=== PATIENT | female | born 1985 | race Caucasian/White ===

== ENCOUNTER 2020-05-23 14:44 | Inpatient (IN) ==
[2020-05-23] MEDS ORDERED: ONDANSETRON 4 MG TAB.RAPDIS PO PRN (14:52)
[2020-05-23] MEDS ORDERED: INSULIN REGULAR, HUMAN 100 UNITS in NORMAL SALINE 100 ML IV PRN ×2 (14:52)
[2020-05-23] MEDS ORDERED: OXYTOCIN/DEXTROSE 5%-WATER 30 UNITS/500 ML BAG IV ONE (14:52)
[2020-05-23] MEDS ORDERED: MISOPROSTOL 100 MCG TABLET VG PRN (14:52)
[2020-05-23 15:21] LABS: Random Urine Total Protein 83.3 mg/dL (0-12)
[2020-05-23 16:04] LABS: Hematocrit 35.5 % (37.0-47.0); Mean Cell Volume 96.5 fl (78-100); Mean Corpuscular Hemoglobin 32.6 pg (27-31); Mean Corpuscular Hgb Conc 33.8 g/dl (32-36); Mean Platelet Volume 10.9 fl (8-12.5); NRBC# 0.1 k/mm3 (0-1); Neutrophil # 6.2 K/mm3 (1.3-6.0); Neutrophil % 72.2 % (42-75.0); Platelet Count 163 K/mm3 (150-450); Red Blood Count 3.68 M/mm3 (4.2-5.4); Red Cell Distribution Width 13.2 % (11.5-14.0); White Blood Count 8.6 K/mm3 (4.0-10.5)
[2020-05-23 16:05] LABS: Albumin * 2.4 gm/dl (3.4-5.0); Anion Gap 14.1 mmol/L (6.8-13.8); BUN/Creatinine Ratio 19.4 (9.0-21.6); Bilirubin, Total 0.2 mg/dL (0.0-1.1); Ca. Corrected For Albumin 10.3 mg/dL (8.4-10.2); Calcium * 9.3 mg/dL (7.9-10.9); Carbon Dioxide 21.9 mmol/L (24-32.6); TSH * 2.005 uIU/mL (0.358-3.74); Total Protein 5.8 gm/dL (6.2-8.2)
--- NOTE | 2020-05-23 16:35 | HP ---
Chief Complaint - Chief Complaint Date of Service: 05/23/20 Time of Service: 16:28 Chief Complaint: Induction of labor for preeclampsia History of Present Illness: 34 yo at 38 weeks presents to L&D from office for induction of labor due t o preeclampsia. Patient denies NINA, visual changes, epigastric pain. This complicated by anemia, AMA, hypothyroid, GDM - insulin dependent, h/o recurrent SAB, and now preeclampsia. Rh negative Rubella non-immune GBS negative Medical History (Last Reviewed 05/23/20 @ 16:31 by Rui Rod DO) History of recurrent , currently (Chronic) Advanced maternal age affecting , antepartum (Chronic) Hypothyroid (Chronic) Cervical dysplasia Gestational diabetes Onset Date: 03/25/20 Human papilloma virus Pneumonia Fibroid uterus (Resolved) Missed (Resolved) 6wk size embryo Ovarian cyst (Resolved) 2.5cm simple with inconclusive viability (Resolved) Uterine mass (Resolved) Polyp vs Fibroid vs Placental tissue Surgical History: Surgical History (Last Reviewed 05/23/20 @ 16:31 by Rui Rod DO) History of ankle surgery right History of dilation and curettage Onset Date: 06/03/19 Foci of retained chorionic villi and placental site with necrosis and degeneration. No atypia or malignant neoplasia identified. History of hysteroscopy Onset Date: 06/03/19 Status post hysteroscopic polypectomy Onset Date: 06/03/19 Family History: Family History (Last Reviewed 05/23/20 @ 16:31 by Rui Rod DO) Mother Alive and well Father Alive and well Social History: (Last Reviewed 05/23/20 @ 16:31 by Rui Rod DO) Social History: Marital status: household members: spouse current occupational status: employed current occupation: [employer] Highest education level completed: Associate degree: occupat Service: No Tobacco: Smoking Status: Never smoker Alcohol: alcohol intake: current alcohol intake frequency: holiday/special occasion details: none since + UPT Substance Use: substance use type: does not use Dietary Habits: caffeine: Yes caffeine comment: 1-2daily Type: carbonated beverages, tea Exercise: Physical activity type: none Review Of Systems (GEN) - Review of Systems Generalized/Overall Review: Present: No Symptoms Reported EENTM: Present: No Symptoms Reported Respiratory: Present: No Symptoms Reported Cardiac: Present: No Symptoms Reported Abdominal: Present: No Symptoms Reported Genitourinary: Present: No Symptoms Reported Musculoskeletal: Present: No Symptoms Reported Neurological: Present: No Symptoms Reported Skin: Present: No Symptoms Reported Endocrine: Present: No Symptoms Reported Allergies/Adverse Reactions: Allergies Allergy/AdvReac Type Severity Reaction Status Date / Time Penicillins Allergy Intermediate itching, Verified 05/23/20 15:13 "swelled up" metronidazole Allergy Unknown Verified 05/23/20 15:13 Home Medications: HOME MEDICATIONS aspirin 81 mg tablet,delayed release 81 mg PO DAILY 10/08/19 [Last Taken 05/22/20] levothyroxine 50 mcg tablet 50 mcg PO DAILY #90 tab 10/19/19 [Last Taken 05/23/20] prenat.vits,erlinda,wsa-ejoc-yvdsk 1 tab PO DAILY 12/15/19 [Last Taken 05/22/20] ferrous sulfate 325 mg (65 mg iron) tablet 325 mg PO DAILY #30 tab 03/21/20 [Last Taken 05/22/20] acetone (urine) test See Rx Instructions .ROUTE .MEDSUPPLY #100 ea 03/25/20 [Last Taken Unknown] blood sugar diagnostic See Rx Instructions .ROUTE .MEDSUPPLY #100 ea 03/25/20 [Last Taken Unknown] blood-glucose meter See Rx Instructions .ROUTE .MEDSUPPLY #1 ea 03/25/20 [Last Taken Unknown] lancets 28 gauge See Rx Instructions .ROUTE .MEDSUPPLY #100 ea 03/25/20 [Last Taken Unknown] insulin NPH isoph U-100 human 100 unit/mL (3 mL) subcutaneous pen 10 unit SUBCUT BID #15 ml 04/08/20 [Last Taken 05/23/20 07:00] pen needle, diabetic 32 gauge x 5/32" See Rx Instructions .ROUTE .MEDSUPPLY #100 ea 04/12/20 [Last Taken Unknown] diphenhydrAMINE HCL [Benadryl] 25 mg PO Q3H6XD PRN 05/16/20 [Last Taken 05/16/20 09:30] Exam - Exam Vital Signs: Vital Signs - Last Taken Temp 37.1 C 05/23/20 16:23 Pulse 69 05/23/20 16:23 Resp 20 08/03/20 16:23 BP 139/92 H 05/23/20 16:23 Pulse Ox 99 05/23/20 16:23 Constitutional: Present: Alert, Oriented x3, Cooperative, No distress ENT Exam: Present: hearing grossly normal Neck: Absent: thyromegaly Breasts: Present: Exam deferred Respiratory: Present: lungs clear, no respiratory distress Cardiovascular/Chest: Present: normal peripheral pulses, regular rate, rhythm, no edema Abdomen: Present: soft, nontender, no rebound tenderness, other - gravid /Rectal: Present: Other - FT/60/-2, posterior Extremity: Present: no calf tenderness, lower extremity edema - 1+ Skin Exam: Present: normal color, warm/dry, no cyanosis Neurologic: Present: alert, normal mood/affect, oriented x 3 Appearance: Present: appropriate appearance, appropriate insight Eye contact: Present: cooperative, good eye contact Thoughts: Present: normal thought pattern Diagnostic Studies: Abnormal Lab Results 05/23/20 05/23/20 05/23/20 Range/Units 15:00 15:39 15:39 RBC 3.68 L (4.2-5.4) M/mm3 Hgb 12.0 L (12.5-16.0) gm/dL Hct 35.5 L (37.0-47.0) % MCH 32.6 H (27-31) pg Immature Gran % (Auto) 2.20 H (0.001-0.429) % Immature Gran # (Auto) 0.19 H (0.000-0.0310) K/mm3 Lymphocytes % 17.7 L (20-51) % Neutrophils # 6.2 H (1.3-6.0) K/mm3 Carbon Dioxide 21.9 L (24-32.6) mmol/L Anion Gap 14.1 H (6.8-13.8) mmol/L Calcium Adj for Albumin 10.3 H (8.4-10.2) mg/dL Total Protein 5.8 L (6.2-8.2) gm/dL Albumin 2.4 L (3.4-5.0) gm/dl U Random Total Protein 83.3 H (0-12) mg/dL U [place] Prot/Creat Ratio 849 H (0-199) mg/gm Laboratory Results WBC 8.6 K/mm3 (4.0-10.5) 05/23/20 15:39 RBC 3.68 M/mm3 (4.2-5.4) L 05/23/20 15:39 Hgb 12.0 gm/dL (12.5-16.0) L 05/23/20 15:39 Hct 35.5 % (37.0-47.0) L 05/23/20 15:39 MCV 96.5 fl (78-100) 05/23/20 15:39 MCH 32.6 pg (27-31) H 05/23/20 15:39 MCHC 33.8 g/dl (32-36) 05/23/20 15:39 RDW 13.2 % (11.5-14.0) 05/23/20 15:39 Plt Count 163 K/mm3 (150-450) 05/23/20 15:39 MPV 10.9 fl (8-12.5) 05/23/20 15:39 Immature Gran % (Auto) 2.20 % (0.001-0.429) H 05/23/20 15:39 Immature Gran # (Auto) 0.19 K/mm3 (0.000-0.0310) H 05/23/20 15:39 Neutrophils % 72.2 % (42-75.0) 05/23/20 15:39 Lymphocytes % 17.7 % (20-51) L 05/23/20 15:39 Monocytes % 7.7 % (0.0-9) 05/23/20 15:39 Eosinophils % 0.0 % (0.0-3.0) 05/23/20 15:39 Basophils % 0.2 % (0.0-1.0) 05/23/20 15:39 Nucleated RBC % 0.1 k/mm3 (0-1) 05/23/20 15:39 Neutrophils # 6.2 K/mm3 (1.3-6.0) H 05/23/20 15:39 Lymphocytes # 1.52 k/mm3 (1.5-3.5) 05/23/20 15:39 Monocytes # 0.7 k/mm3 (0.0-1.0) 05/23/20 15:39 Eosinophils # 0.0 k/mm3 (0.0-0.7) 05/23/20 15:39 Absolute Basophils 0.0 k/mm3 (0.0-0.1) 05/23/20 15:39 Sodium 135 mmol/L (132-142) 05/23/20 15:39 Plasma Sodium 135 mmol/L (130-142) 05/23/20 15:39 Potassium 4.0 mmol/L (3.4-4.6) 05/23/20 15:39 Chloride 103 mmol/L (97-106) 05/23/20 15:39 Carbon Dioxide 21.9 mmol/L (24-32.6) L 05/23/20 15:39 Anion Gap 14.1 mmol/L (6.8-13.8) H 05/23/20 15:39 BUN 12 mg/dL (3-23) 05/23/20 15:39 Creatinine 0.62 mg/dL (0.4-1.4) 05/23/20 15:39 Est GFR (Non-Af Amer) 116 mL/min (60-130) 05/23/20 15:39 BUN/Creatinine Ratio 19.4 (9.0-21.6) 05/23/20 15:39 Random Glucose 78 mg/dL (70-110) 05/23/20 15:39 Calcium 9.3 mg/dL (7.9-10.9) 05/23/20 15:39 Calcium Adj for Albumin 10.3 mg/dL (8.4-10.2) H 05/23/20 15:39 Total Bilirubin 0.2 mg/dL (0.0-1.1) 05/23/20 15:39 AST 18 U/L (0-48) 05/23/20 15:39 ALT 22 U/L (19-67) 05/23/20 15:39 Alkaline Phosphatase 130 U/L (50-170) 05/23/20 15:39 Total Protein 5.8 gm/dL (6.2-8.2) L 05/23/20 15:39 Albumin 2.4 gm/dl (3.4-5.0) L 05/23/20 15:39 TSH 2.005 uIU/mL (0.358-3.74) 05/23/20 15:39 Ur Random Creatinine 98.1 mg/dL (60-200) 05/23/20 15:00 U Random Total Protein 83.3 mg/dL (0-12) H 05/23/20 15:00 U [place] Prot/Creat Ratio 849 mg/gm (0-199) H 05/23/20 15:00 Assessment/Plan - Assessment/Plan (1) Preeclampsia Assessment: Admit for cytotec induction of labor. Seizure precautions. Epidural and pitocin PRN. Accuchecks q 4h till active labor then q2h, q1h if needs to start on insulin drip per protocol. Problem: Acute Qualifiers: Trimester: third trimester Qualified Code(s): O14.93 - Unspecified pre- eclampsia, third trimester (2) Insulin dependent gestational diabetes mellitus (GDM), antepartum Problem: Chronic (3) History of recurrent , currently Problem: Chronic (4) Advanced maternal age affecting , antepartum Problem: Chronic (5) Hypothyroid Problem: Chronic Qualifiers: Hypothyroidism type: unspecified Qualified Code(s): E03.9 - Hypothyroidism, unspecified
[2020-05-24] MEDS: RINGER'S SOLUTION,LACTATED 1,000 ML IV ONE ×3 (08:53→22:43)
[2020-05-24] MEDS ORDERED: ONDANSETRON HCL/PF 2 MG/ML VIAL IV PRN (09:08)
[2020-05-24] MEDS ORDERED: BUPIVACAINE HCL/0.9 % NACL/PF 250 ML EP PRN (09:08)
[2020-05-24] MEDS ORDERED: NALOXONE HCL 1 MG/1 ML SYRG IV PRN (09:08)
--- NOTE | 2020-05-24 09:13 | PN ---
Progess Note - Interim Date: 05/24/20 Time: 08:20 Narrative: 05/24/20 09:08 Patient becoming more uncomfortable with contractions and wanting epidural Vital signs stable -no severe range blood pressures. BS 73 at 0800 HRRR LCTAB Pitocin at 10 mu/min. FHT: 150 baseline, reassuring contractions q 2 min Cervix: 2/90/-1 Impression: Intrauterine at 38 1/7 weeks induction of labor for preeclampsia. complicated by gestational etyqbmks-midxgbx-vumezmhks. Hypothyroidism-stable. Advanced maternal age. History of recurrent SAB. Plan: Anesthesia consulted for epidural placement. Continue seizure precautions.
[2020-05-24] MEDS ORDERED: fentaNYL CITRATE/PF 50 MCG/ML AMPUL IT SCH (09:15)
--- NOTE | 2020-05-24 09:24 | ANES ---
Anesthesia Pre Procedure Eval Vitals/Labs: Last Vital Signs Temp 37.1 C 05/23/20 17:15 Pulse 65 05/23/20 17:15 Resp 18 05/23/20 17:15 BP 149/83 H 05/23/20 17:15 Pulse Ox 98 05/23/20 17:15 HOME MEDICATIONS aspirin 81 mg tablet,delayed release 81 mg PO DAILY 10/08/19 [Last Taken 05/22/20] levothyroxine 50 mcg tablet 50 mcg PO DAILY #90 tab 10/19/19 [Last Taken 05/23/20] prenat.vits,erlinda,lod-hrjr-ibazy 1 tab PO DAILY 12/15/19 [Last Taken 05/22/20] ferrous sulfate 325 mg (65 mg iron) tablet 325 mg PO DAILY #30 tab 03/21/20 [Last Taken 05/22/20] acetone (urine) test See Rx Instructions .ROUTE .MEDSUPPLY #100 ea 03/25/20 [Last Taken Unknown] blood sugar diagnostic See Rx Instructions .ROUTE .MEDSUPPLY #100 ea 03/25/20 [Last Taken Unknown] blood-glucose meter See Rx Instructions .ROUTE .MEDSUPPLY #1 ea 03/25/20 [Last Taken Unknown] lancets 28 gauge See Rx Instructions .ROUTE .MEDSUPPLY #100 ea 03/25/20 [Last Taken Unknown] insulin NPH isoph U-100 human 100 unit/mL (3 mL) subcutaneous pen 10 unit SUBCUT BID #15 ml 04/08/20 [Last Taken 05/23/20 07:00] pen needle, diabetic 32 gauge x 5/32" See Rx Instructions .ROUTE .MEDSUPPLY #100 ea 04/12/20 [Last Taken Unknown] diphenhydrAMINE HCL [Benadryl] 25 mg PO Q3H6XD PRN 05/16/20 [Last Taken 05/16/20 09:30] Allergies/Adverse Reactions: Allergies Allergy/AdvReac Type Severity Reaction Status Date / Time Penicillins Allergy Intermediate itching, Verified 05/23/20 15:13 "swelled up" metronidazole Allergy Unknown Verified 05/23/20 15:13 - Planned Procedure Planned Procedure: MEDICAL INDUCTION OF LABOR Medication List Reviewed:: Yes Allergies Verified: Yes Medical History (Last Reviewed 05/24/20 @ 09:18 by Roger Gonzalez CRNA) History of recurrent , currently (Chronic) Advanced maternal age affecting , antepartum (Chronic) Hypothyroid (Chronic) Cervical dysplasia Gestational diabetes Onset Date: 03/25/20 Human papilloma virus Pneumonia Fibroid uterus (Resolved) Missed (Resolved) 6wk size embryo Ovarian cyst (Resolved) 2.5cm simple with inconclusive viability (Resolved) Uterine mass (Resolved) Polyp vs Fibroid vs Placental tissue Surgical History (Last Reviewed 05/24/20 @ 09:18 by Roger Gonzalez CRNA) History of ankle surgery right History of dilation and curettage Onset Date: 06/03/19 Foci of retained chorionic villi and placental site with necrosis and degeneration. No atypia or malignant neoplasia identified. History of hysteroscopy Onset Date: 06/03/19 Status post hysteroscopic polypectomy Onset Date: 06/03/19 Family History (Last Reviewed 05/24/20 @ 09:18 by Roger Gonzalez CRNA) Mother Alive and well Father Alive and well - Family Anesthesia History Family History:: no untoward family reactions to anesthesia, no familial bleeding tendencies, no family history of clotting disorders, no family history of premature - Airway/Neck/Teeth Within Normal Limits:: Yes Teeth Condition: intact Neck Exam: full range of motion Mallampatti Score: 2 Thyromental (T-M) distance: > 6 cm Mandibulo Hyoid distance: > 3 cm - Respiratory Respiratory Physical: lungs clear Smoking Status: Never smoker Sleep Apnea currently treated: No Sleep Apnea by current assessment: No - Cardiovascular Tolerate Activity: Fair Heart Sounds: S1 & S2, Regular - Gastrointestinal NPO since: today - Anesthesia Assessment and Plan ASA Class: PS, III Anesthesia Type Plan: Epidural - CSE for labor analgesia
--- NOTE | 2020-05-24 09:44 | ANES ---
Anesthesia Procedure Note Procedure Note: ANESTHESIA PROCEDURE NOTE Date of Procedure: 05/24/2020 Time of procedure: 9:25 AM. Performed by: TRINI Quintero CRNA, MSN H[employer] Teamster: Analy Trejo RN. Preprocedure diagnosis: Active labor, labor pain. Post procedure diagnosis: Same. Procedure:Epidural for labor analgesia L3-4. Indications: Labor pain. Findings: See below. Details of the procedure: The patient was placed on the side of the bed in sitting positionand prepped with DuraPrep then draped in a sterile fashion. Lidocaine 1% was infiltrated to the skin and subcutaneous tissues at the level of the L3-4 interspace. An 18-gauge Touhy needle was used to approach the epidural space with loss of resistance technique. Once loss of resistance was achieved a 27-gauge spinal needle was passed through the epidural needle and CSF was contacted. After CSF returned, 20 mcg of fentanyl was injected in the spinal needle was removed the epidural catheter was then threaded approximately 4 cm in the epidural needle was removed. The catheter was taped in place and after careful aspiration 3 mL of 1.5% lidocaine with 1-200,000 epinephrine was injected without change in maternal heart rate or sensorium. . EBL: Minimal. Fluids: N/A. Specimen: N/A. Post procedure condition: The patient tolerated the procedure well with good relief. No complications were noted. Thank you for this consultation. Roger Gonzalez CRNA, TRINI, MSN
--- NOTE | 2020-05-24 09:44 | ANES ---
Post Anesthesia Discharge - Transfer of Care Transfer of Care handoff given to nurse: Yes - Discharge from PACU Discharge from PACU when meets criteria: Yes - Comfortable post CSE.
--- NOTE | 2020-05-24 09:54 | ANES ---
Post Anesthesia Assessment - Vital Signs Vitals: Last Vital Signs Temp 36.7 C 05/24/20 09:49 Pulse 72 05/24/20 09:49 Resp 20 05/24/20 09:49 BP 127/86 05/24/20 09:49 Pulse Ox 98 05/24/20 09:49 Airway Patency: Normal - Mental Status Level Of Consciousness: Awake, Alert, Appropriate - Pain Level Pain Score: 0 - N/V Assessment Nausea/Vomiting Presence: None Dehydration:: No
--- NOTE | 2020-05-24 19:12 | PN ---
Progess Note - Interim Date: 05/24/20 Time: 18:00 Narrative: 05/24/20 19:10 Patient comfortable with epidural Vital signs stable. Pitocin at 12 mu/min. FHT: 150 baseline, variables with contractions going down to the 60s lasting less than minute contractions q 2-3 min Cervix: Complete/ -3 Impression: Intrauterine at 38 2/7 weeks induction of labor for preeclampsia. Gestational diabetes-stable Plan: Patient not pushing well. Will allow fetus to rest and mother to labor down. Will place internal monitors to better assess strength of contractions and tracing. 05/24/20 19:12
[2020-05-24 19:13] LABS: Urine Bilirubin Negative (NEGATIVE); Urine Blood 250 /ul (NEGATIVE); Urine Ketone Negative (NEGATIVE); Urine Nitrite Negative (NEGATIVE); Urine Protein >=300 mg/dL (NEGATIVE); Urine Specific Gravity 1.025 SP.GR. (1.005-1.010); Urine Urobilinogen Normal (NORMAL)
[2020-05-24 19:19] LABS: Urine Appearance Cloudy (CLEAR); Urine Color Amber
[2020-05-24] MEDS ORDERED: RINGER'S SOLUTION,LACTATED 1,000 ML IV PRN (22:47)
[2020-05-24] MEDS ORDERED: OXYTOCIN 20 UNITS in RINGER'S SOLUTION,LACTATED 1,000 ML IV ONE (22:47)
[2020-05-24] MEDS ORDERED: AZITHROMYCIN 500 MG in DEXTROSE 5 % IN WATER 250 ML IV PRN ×2 (22:54)
--- NOTE | 2020-05-24 22:54 | PN ---
Mary Note - Interim Date: 05/24/20 Time: 22:51 Narrative: 05/24/20 22:51 Indication: Maternal exhaustion Pre Procedure: Patient was counseled to the risk, benefits, and alternatives to operative vaginal delivery. All questions were answered. Patient consented to proceed with operative vaginal delivery. Cervix was completely dilated and effaced, maternal- size appropriate for application, bladder was emptied, flexion point identified, cup choice appropriate for application site, maternal tissue excluded from vacuum cup heart rate interpretation: Reassuring, EFW 3200 g, station [+2], Position of head OA Anesthesia: [epidural] Procedure: Total application time of the Kiwi Pro with Palm Pump was 112 seconds Maximum vacuum achieved was [500 mm Hg] Number of pulls 3 Number of involuntary releases 1 Vacuum reduced between contractions Advancement in station with each pull Degree of rotation [0-45] Post Procedure: Attempted delivery of infant unsuccessful. The risk, benefits, and alternatives to section discussed with patient in detail. Patient desires to proceed with primary section for arrest of descent. She also signed sterilization papers back in March and desires to proceed with bilateral salpingectomy for permanent sterilization at the time of her section. All questions answered we will proceed with surgery.
[2020-05-24] MEDS ORDERED: ceFAZolin SODIUM 2 GM in DEXTROSE 5 % IN WATER 50 ML IV PRN ×2 (23:02)
[2020-05-24] MEDS ORDERED: LIDOCAINE HCL/EPINEPHRINE 20 ML VIAL ONE (23:04)
[2020-05-24] MEDS ORDERED: SODIUM BICARBONATE 1 MEQ/ML SYRG ONE (23:04)
[2020-05-24] MEDS ORDERED: ceFAZolin SODIUM 1 GM VIAL IV ONE (23:05)
[2020-05-24] MEDS ORDERED: ONDANSETRON HCL/PF 2 MG/ML VIAL ONE (23:31)
[2020-05-25] MEDS: RINGER'S SOLUTION,LACTATED 1,000 ML IV ONE (00:15)
[2020-05-25] MEDS ORDERED: BISACODYL 10 MG SUPP.RECT RC PRN (00:23)
[2020-05-25] MEDS ORDERED: SIMETHICONE 80 MG TAB.CHEW PO PRN (00:23)
[2020-05-25] MEDS ORDERED: ONDANSETRON HCL/PF 2 MG/ML VIAL IV PRN (00:23)
[2020-05-25] MEDS ORDERED: IBUPROFEN 800 MG TABLET PO PRN (00:23)
[2020-05-25] MEDS ORDERED: SENNOSIDES 8.6 MG TABLET PO PRN (00:23)
[2020-05-25] MEDS ORDERED: GLYCERIN/WITCH HAZEL LEAF 40 APPL BOX TP PRN (00:23)
--- NOTE | 2020-05-25 00:25 | ANES ---
Post Anesthesia Discharge - Transfer of Care Transfer of Care handoff given to nurse: Yes - Discharge from PACU Discharge from PACU when meets criteria: Yes
--- NOTE | 2020-05-25 00:25 | ANES ---
Post Anesthesia Assessment - Vital Signs Vitals: Last Vital Signs Temp 37.4 C 05/25/20 00:15 Pulse 91 05/25/20 00:20 Resp 16 05/25/20 00:20 BP 125/92 H 05/25/20 00:20 Pulse Ox 98 05/25/20 00:20 Airway Patency: Normal - Mental Status Level Of Consciousness: Awake - Pain Level Pain Score: 0 - N/V Assessment Nausea/Vomiting Presence: None Dehydration:: No
--- NOTE | 2020-05-25 00:25 | ANES ---
Anesthesia Pre Procedure Eval Vitals/Labs: Last Vital Signs Temp 37.4 C 05/25/20 00:15 Pulse 92 05/25/20 00:15 Resp 16 05/25/20 00:15 BP 123/62 05/25/20 00:15 Pulse Ox 99 05/25/20 00:15 HOME MEDICATIONS aspirin 81 mg tablet,delayed release 81 mg PO DAILY 10/08/19 [Last Taken 05/22/20] levothyroxine 50 mcg tablet 50 mcg PO DAILY #90 tab 10/19/19 [Last Taken 05/23/20] prenat.vits,erlinda,dtd-iclf-lbqbd 1 tab PO DAILY 12/15/19 [Last Taken 05/22/20] ferrous sulfate 325 mg (65 mg iron) tablet 325 mg PO DAILY #30 tab 03/21/20 [Last Taken 05/22/20] acetone (urine) test See Rx Instructions .ROUTE .MEDSUPPLY #100 ea 03/25/20 [Last Taken Unknown] blood sugar diagnostic See Rx Instructions .ROUTE .MEDSUPPLY #100 ea 03/25/20 [Last Taken Unknown] blood-glucose meter See Rx Instructions .ROUTE .MEDSUPPLY #1 ea 03/25/20 [Last Taken Unknown] lancets 28 gauge See Rx Instructions .ROUTE .MEDSUPPLY #100 ea 03/25/20 [Last Taken Unknown] insulin NPH isoph U-100 human 100 unit/mL (3 mL) subcutaneous pen 10 unit SUBCUT BID #15 ml 04/08/20 [Last Taken 05/23/20 07:00] pen needle, diabetic 32 gauge x 5/32" See Rx Instructions .ROUTE .MEDSUPPLY #100 ea 04/12/20 [Last Taken Unknown] diphenhydrAMINE HCL [Benadryl] 25 mg PO Q3H6XD PRN 05/16/20 [Last Taken 05/16/20 09:30] prednisolone 5 mg tablet 5 mg PO DAILY #38 tab 05/24/20 [Last Taken Unknown] Allergies/Adverse Reactions: Allergies Allergy/AdvReac Type Severity Reaction Status Date / Time Penicillins Allergy Intermediate itching, Verified 05/23/20 15:13 "swelled up" metronidazole Allergy Unknown Verified 05/23/20 15:13 - Planned Procedure Planned Procedure: Medication List Reviewed:: Yes Allergies Verified: Yes Medical History (Last Reviewed 05/25/20 @ 00:24 by Harlan Palomino CRNA) History of recurrent , currently (Chronic) Advanced maternal age affecting , antepartum (Chronic) Hypothyroid (Chronic) Cervical dysplasia Gestational diabetes Onset Date: 03/25/20 Human papilloma virus Pneumonia Fibroid uterus (Resolved) Missed (Resolved) 6wk size embryo Ovarian cyst (Resolved) 2.5cm simple with inconclusive viability (Resolved) Uterine mass (Resolved) Polyp vs Fibroid vs Placental tissue Surgical History (Last Reviewed 05/25/20 @ 00:24 by Harlan Palomino CRNA) History of ankle surgery right History of dilation and curettage Onset Date: 06/03/19 Foci of retained chorionic villi and placental site with necrosis and degeneration. No atypia or malignant neoplasia identified. History of hysteroscopy Onset Date: 06/03/19 Status post hysteroscopic polypectomy Onset Date: 06/03/19 Family History (Last Reviewed 05/25/20 @ 00:24 by Harlan Palomino CRNA) Mother Alive and well Father Alive and well - Family Anesthesia History Family History:: no untoward family reactions to anesthesia - Airway/Neck/Teeth Within Normal Limits:: Yes Teeth Condition: intact Neck Exam: full range of motion Mallampatti Score: 1 Thyromental (T-M) distance: > 6 cm Mandibulo Hyoid distance: > 3 cm - Respiratory Respiratory Physical: lungs clear Smoking Status: Never smoker Sleep Apnea currently treated: No Sleep Apnea by current assessment: No - Cardiovascular Tolerate Activity: Good Heart Sounds: S1 & S2, Regular - Gastrointestinal NPO since: 1200 - Anesthesia Assessment and Plan ASA Class: PS, II, E Anesthesia Type Plan: Epidural Planned difficult intubation/equipment available: No
--- NOTE | 2020-05-25 00:32 | OR ---
Operative Report - Dictated Report Narrative: Indication: 34-year-old 3 para 0 admitted for induction of labor at 38 weeks due to preeclampsia progressed to complete +2 station with arrest of descent and failed vacuum assisted delivery. Patient further desires sterilization via bilateral salpingectomy. Status: Emergent Pre Operative Diagnosis: 38 to 7-week intrauterine . Arrest of descent. Desires permanent sterilization via bilateral salpingectomy. Mild preeclampsia. Gestational vjaxgubh-vfvnczs-plrxfuehl. Advanced maternal age. Hypothyroidism. Post Operative Diagnosis: Same. Procedure Preformed: Primary Low Transverse Section. Bilateral salpingectomy Surgeon: Arley Rod DO Tool Machinist: OR Staff Anesthesia: Epidural Estimated Blood Loss: 200 mL Urine Output: 200 mL of clear urine Fluids Given: 1700 mL of crystalloid Drains: Noble to gravity Surgical Complications: None Specimens: Placenta to pathology Findings: Female born at 2324 on 05/24/2021 with Apgars 8 and 9, weighing 3106 g in cephalic presentation. Normal uterus, tubes, ovaries. Technique: The patient was taken to the operating room and placed in dorsal supine position with a left lateral tilt. After adequate epidural anesthesia, noble catheter insertion,SCDs placed, and 2 g of Ancef and 500 mg of Zithromax intravenously given preoperatively, the abdominal cavity was entered via a modified Oumar-Buckner incision. Two rolled laps were placed in the pericolic gutters on either side of the uterus. A transverse incision was made in the lower uterine segment and extended laterally and upwardly with digital traction. Clear fluid was noted upon amniotomy. The infant was delivered easily. The cord was clamped and cut and infant was handed off to awaiting wreath machine tender. The placenta was allowed to deliver spontaneously. The uterus was cleared of clot and debris. Uterine incision was closed with 0 Vicryl using a running stitch. A second imbricating layer was placed. Excellent hemostasis was noted. Rolled laps were removed from the abdominal cavitiy. The right fallopian tube was identified and followed out to the fimbriated end. Using mini hand-held LigaSure device the mesosalpinx was coagulated and transected and the tube was transected approximately 2 cm from the cornual region. The exact same was done on the patient's left side. Excellent hemostasis was noted. The peritoneum was closed with a running 3-0 Monocryl. The same suture was used to approximate the rectus and pyramidalis muscles. The fascia was closed with a running 0 Vicryl. The subcutaneous layer was closed with a running 3-0 Monocryl. The same suture was used to approximate the subdermal layer. The skin was closed with a running 4-0 Monocryl and Dermabond. Sponge, lap, needle, and instrument count were correct x 2. Disposition: The patient was transferred to post anesthesia care unit in good condition History for MU History for MU Definition: * The number of deliveries resulting in a live the patient experienced prior to current hospitalization * The previous delivery of live twins or any live multiple gestation is considered one live event. *If primagravida or nulliparous is documented select zero for the number of previous live births. Live Events: Live Events: 0
[2020-05-25] MEDS: oxyCODONE HCL/ACETAMINOPHEN 1 TAB TABLET PO PRN ×7 (01:15→22:53)
[2020-05-25] MEDS: IBUPROFEN 800 MG TABLET PO PRN ×4 (01:15→21:12)
[2020-05-25] MEDS ORDERED: LEVOTHYROXINE SODIUM 100 MCG TABLET ONE (05:36)
[2020-05-25] MEDS: LEVOTHYROXINE SODIUM 50 MCG TABLET PO SCH ×2 (05:41→09:19)
[2020-05-25] MEDS ORDERED: ceFAZolin SODIUM 1 GM VIAL IV PRN (06:00)
--- NOTE | 2020-05-25 06:59 | PN ---
Subjective - Date and Time Seen Date: 05/25/20 Time: 06:56 Objective - Vitals Vitals: Last Vital Signs Temp 36.8 C 05/25/20 05:30 Pulse 78 05/25/20 05:30 Resp 16 05/25/20 04:30 BP 154/86 H 05/25/20 05:30 Pulse Ox 98 05/25/20 05:30 Pain controlled. Denies headache, visual changes, or epigastric pain. Lochia wnl. Abdomen - soft, appropriately tender Incision -clean, dry, intact uterus - firm, at umbilicus -1 DTR-3/4, no clonus. No calf tenderness Impression: Post op day #1 s/p primary section with bilateral salpingectomy. Preeclampsia-resolving. Gestational diabetes-resolving. Hypothyroidism-stable. Plan: Continue routine post-operative/ care. We will monitor blood pressures and blood sugars closely. - Abnormal Lab Findings Abnormal Lab Findings: Abnormal Lab Results 05/24/20 Range/Units 19:02 Urine Protein >=300 H (NEGATIVE) mg/dL Urine Blood 250 H (NEGATIVE) /ul Prot Sulfosalicylic Acd 2+ H (0) mg/dL [facility] Physician Documentation - Urinary Catheter Management Urethral (Stephen) Date of Insertion: 05/24/20 Time of Insertion: 10:30 Assessment/Plan - Problems/Diagnosis (1) Preeclampsia Problem: Acute Qualifiers: Trimester: third trimester Qualified Code(s): O14.93 - Unspecified pre- eclampsia, third trimester (2) Insulin dependent gestational diabetes mellitus (GDM), antepartum Problem: Chronic (3) History of recurrent , currently Problem: Chronic (4) Advanced maternal age affecting , antepartum Problem: Chronic (5) Hypothyroid Problem: Chronic Qualifiers: Hypothyroidism type: unspecified Qualified Code(s): E03.9 - Hypothyroidism, unspecified
[2020-05-25] MEDS ORDERED: LEVOTHYROXINE SODIUM 50 MCG TABLET PO SCH (07:00)
[2020-05-25] MEDS ORDERED: PRENATAL VITS96/IRON FUM/FOLIC 1 TAB TABLET PO SCH (09:00)
[2020-05-25] MEDS ORDERED: FERROUS SULFATE 325 MG TABLET PO SCH (09:00)
[2020-05-25] MEDS: DOCUSATE SODIUM 100 MG CAPSULE PO SCH ×2 (09:23→21:12)
[2020-05-25] MEDS: ENOXAPARIN SODIUM 40 MG/0.4 ML SYRG SC SCH (09:23)
[2020-05-25] MEDS: NIFEdipine 10 MG CAPSULE PO SCH ×2 (12:54→16:46)
[2020-05-25 13:24] LABS: Hematocrit 37.1 % (37.0-47.0); Hemoglobin 12.5 gm/dL (12.5-16.0); Mean Cell Volume 96.6 fl (78-100); Mean Corpuscular Hemoglobin 32.6 pg (27-31); Mean Corpuscular Hgb Conc 33.7 g/dl (32-36); Neutrophil # 12.8 K/mm3 (1.3-6.0); Neutrophil % 83.9 % (42-75.0); Platelet Count 136 K/mm3 (150-450); Red Blood Count 3.84 M/mm3 (4.2-5.4); White Blood Count 15.3 K/mm3 (4.0-10.5)
[2020-05-25 13:36] LABS: Albumin * 1.9 gm/dl (3.4-5.0); Anion Gap 10.8 mmol/L (6.8-13.8); BUN/Creatinine Ratio 11.1 (9.0-21.6); Bilirubin, Total 0.3 mg/dL (0.0-1.1); Ca. Corrected For Albumin 10.1 mg/dL (8.4-10.2); Calcium * 8.7 mg/dL (7.9-10.9); Carbon Dioxide 24.9 mmol/L (24-32.6); Potassium 3.7 mmol/L (3.4-4.6); Total Protein 5.2 gm/dL (6.2-8.2)
[2020-05-25] MEDS ORDERED: NIFEdipine 10 MG CAPSULE PO ONE ×2 (14:21→16:30)
[2020-05-25] MEDS ORDERED: NIFEdipine 30 MG TAB.SR.24H PO SCH (16:30)
[2020-05-25] MEDS: NIFEdipine 30 MG TAB.SR.24H PO SCH (16:51)
[2020-05-26] MEDS: oxyCODONE HCL/ACETAMINOPHEN 1 TAB TABLET PO PRN ×3 (02:00→19:53)
[2020-05-26] MEDS: IBUPROFEN 800 MG TABLET PO PRN ×3 (05:05→17:42)
[2020-05-26] MEDS: LEVOTHYROXINE SODIUM 50 MCG TABLET PO SCH (05:05)
[2020-05-26] MEDS ORDERED: LEVOTHYROXINE SODIUM 50 MCG TABLET ONE (05:09)
[2020-05-26] MEDS: DOCUSATE SODIUM 100 MG CAPSULE PO SCH ×2 (08:55→23:04)
[2020-05-26] MEDS: ENOXAPARIN SODIUM 40 MG/0.4 ML SYRG SC SCH (08:55)
[2020-05-26] MEDS: NIFEdipine 30 MG TAB.SR.24H PO SCH (09:07)
--- NOTE | 2020-05-26 12:01 | PN ---
Subjective - Date and Time Seen Date: 05/26/20 Time: 11:56 Objective - Vitals Vitals: Last Vital Signs Temp 37.1 C 05/26/20 10:00 Pulse 92 05/26/20 10:00 Resp 20 05/26/20 10:00 BP 149/99 H 05/26/20 10:00 Pulse Ox 98 05/26/20 10:00 Patient complains of mild flare of pruritus on arms and legs. Ambulating well. Tolerating regular diet. Pain well controlled. Lochia wnl. Abdomen - soft, appropriately tender Incision -clean, dry, intact uterus - firm, at umbilicus -3 DTR-3/4. No calf tenderness Impression: Post op day #2 s/p primary section. Gestational diabetes- resolved. Preeclampsia/ hypertension now with severe features responding to low-dose nifedipine, diuresing well. Hypothyroid-stable. Advanced maternal age. PEP- stable with slight increase in rash on proximal limbs. Plan: Continue routine post-operative/ care. [facility]calibrate for home BP monitoring. Continue with current dose of nifedipine. - Abnormal Lab Findings Abnormal Lab Findings: Abnormal Lab Results 05/25/20 05/25/20 Range/Units 13:18 13:18 WBC 15.3 H D (4.0-10.5) K/mm3 RBC 3.84 L (4.2-5.4) M/mm3 MCH 32.6 H (27-31) pg Plt Count 136 L (150-450) K/mm3 Immature Gran % (Auto) 0.70 H (0.001-0.429) % Immature Gran # (Auto) 0.10 H (0.000-0.0310) K/mm3 Neutrophils % 83.9 H (42-75.0) % Lymphocytes % 10.3 L (20-51) % Neutrophils # 12.8 H (1.3-6.0) K/mm3 Chloride 108 H (97-106) mmol/L Random Glucose 132 H D (70-110) mg/dL ALT 18 L (19-67) U/L Total Protein 5.2 L (6.2-8.2) gm/dL Albumin 1.9 L (3.4-5.0) gm/dl [facility] Physician Documentation - Urinary Catheter Management Urethral (Stephen) Date of Insertion: 05/24/20 Time of Insertion: 10:30 Date of Removal: 05/25/20 Time of Removal: 14:50 Assessment/Plan - Problems/Diagnosis (1) Preeclampsia Problem: Acute Qualifiers: Trimester: third trimester Qualified Code(s): O14.93 - Unspecified pre- eclampsia, third trimester (2) Insulin dependent gestational diabetes mellitus (GDM), antepartum Problem: Chronic (3) History of recurrent , currently Problem: Chronic (4) Advanced maternal age affecting , antepartum Problem: Chronic (5) Hypothyroid Problem: Chronic Qualifiers: Hypothyroidism type: unspecified Qualified Code(s): E03.9 - Hypothyroidism, unspecified
[2020-05-27] MEDS: IBUPROFEN 800 MG TABLET PO PRN ×3 (01:01→13:37)
[2020-05-27] MEDS: NIFEdipine 10 MG CAPSULE PO SCH (01:51)
[2020-05-27] MEDS: LEVOTHYROXINE SODIUM 50 MCG TABLET PO SCH (06:03)
[2020-05-27 07:47] VITALS: BP 136/96
[2020-05-27] MEDS: NIFEdipine 30 MG TAB.SR.24H PO SCH (08:24)
[2020-05-27] MEDS: DOCUSATE SODIUM 100 MG CAPSULE PO SCH (08:24)
[2020-05-27] MEDS: ENOXAPARIN SODIUM 40 MG/0.4 ML SYRG SC SCH (08:24)
--- NOTE | 2020-05-27 11:14 | PN ---
Subjective - Date and Time Seen Date: 05/27/20 Time: 11:10 Objective - Vitals Vitals: Last Vital Signs Temp 36.8 C 05/27/20 07:46 Pulse 90 05/27/20 08:24 Resp 16 05/27/20 07:46 BP 136/96 H 05/27/20 08:24 Pulse Ox 98 05/27/20 07:46 Patient denies complaints-specifically denies headache, visual changes, or epigastric pain. Breast-feeding well. Ambulating without difficulty. Tolerating regular diet. Pain well controlled. Lochia wnl. Abdomen - soft, appropriately tender Incision -clean, dry, intact uterus - firm, at umbilicus -3 DTR-3/4 with no clonus. No calf tenderness Impression: Post op day #3 s/p primary section with bilateral salpingectomy. Preeclampsia with hypertension in the severe range- stable on nifedipine 30 mg XR daily. Gestational diabetes-resolved. Hypothyroid-stable. Advanced maternal age. Plan: Routine discharge instructions with preeclampsia precautions. [facility]i Physician Documentation - Urinary Catheter Management Urethral (Stephen) Date of Insertion: 05/24/20 Time of Insertion: 10:30 Date of Removal: 05/25/20 Time of Removal: 14:50 Assessment/Plan - Problems/Diagnosis (1) Preeclampsia Problem: Acute Qualifiers: Trimester: third trimester Qualified Code(s): O14.93 - Unspecified pre- eclampsia, third trimester (2) Insulin dependent gestational diabetes mellitus (GDM), antepartum Problem: Resolved (3) History of recurrent , currently Problem: Resolved (4) Advanced maternal age affecting , antepartum Problem: Inactive (5) Hypothyroid Problem: Chronic Qualifiers: Hypothyroidism type: unspecified Qualified Code(s): E03.9 - Hypothyroidism, unspecified
== END 2020-05-27 14:15 | disposition home or self-care (01) | DRG 785 ==
LOC: OB 14:44
PROVIDERS: ADMIT Obstetrics & Gynecology; ATTEND Obstetrics & Gynecology
CPT/HCPCS: 36415; 59025; 80053; 81003; 82570; 84155; 84156; 84443; 85025; 88302; 88307; 88888; J2405